=== PATIENT | female | born 1985 | race Caucasian/White ===

== ENCOUNTER 2017-03-08 17:56 | Emergency (ER) | payer MEDICAID ==
[~2017-03-08] VITALS: Ht 167.6 cm; Wt 65.8 kg
[~2017-03-08 17:56] MED LIST: SERT100T PO
[2017-03-08 18:07] VITALS: BP 121/87
[2017-03-08 18:30] LABS: BASOPHILS # (AUTO) 0.5 K/uL (0.00-0.22); EOSINOPHILS # (AUTO) 0.2 K/uL (0-0.4); HEMATOCRIT 36.8 % (36-48); HEMOGLOBIN 11.7 g/dL (12.0-16.0); LYMPHOCYTES # (AUTO) 3.2 K/uL (2.5-16.5); MEAN CORPUSCULAR HEMOGLOBIN 28 pg (27-31); MEAN CORPUSCULAR HGB CONC 32 g/dL (33-37); MEAN CORPUSCULAR VOLUME 88 fL (80-94); PLATELET COUNT (AUTO) 349 K/uL (140-450); RED BLOOD CELL COUNT(AUTO) 4.16 MIL/uL (4.20-5.40); RED CELL DISTRIBUTION WIDTH 14.3 % (11.6-13.7); WHITE BLOOD COUNT (AUTO) 8.9 K/uL (4.8-10.8)
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
[2017-03-08 18:46] LABS: CREATININE 0.8 mg/dL (0.6-1.3)
--- NOTE | 2017-03-08 18:48 | NUR ---
DR BAXTER EVALUATING PT AT BEDSIDE
[2017-03-08 18:52] LABS: ACETAMINOPHEN 9.6 ug/ml (10-30); SALICYLATE 4.8 mg/dL (2.8-20.0); TOTAL BILIRUBIN 0.2 mg/dL (0.0-1.0)
[2017-03-08] MEDS ORDERED: NACL 0.9% 1,000 ML IV ONE (18:55)
--- NOTE | 2017-03-08 19:11 | NUR ---
Pt found lying supine, VSS on coffee sommelier. Pt arousable to physical stimuli. Pt lethargic but arousable. Pt answering questions and cooperative at this time.
--- NOTE | 2017-03-08 19:42 | NUR ---
Patient being evaluated by Dr. Romo at bedside.
--- NOTE | 2017-03-08 19:44 | NUR ---
Pt placed on bed moreira to provide urine specimen.
--- NOTE | 2017-03-08 19:53 | NUR ---
UA collected and sent to lab.
[2017-03-08 20:14] LABS: APPEARANCE,URINE CLOUDY (CLEAR); BILIRUBIN,URINE 1+ (NEGATIVE); BLOOD, URINE 1+ (NEGATIVE); COLOR,URINE YELLOW (YELLOW); LEUKOCYTE ESTERASE ,URINE 2+ (NEGATIVE); NITRITE, URINE POSITIVE (NEGATIVE); UGLUCOSE NEGATIVE (NEGATIVE)
[2017-03-08 20:21] LABS: BARBITURATE, URINE NEG. ng/ml (NEG <=200); BENZODIAZEPINE, URINE NEG. ng/mL (NEG <=200); CANNABINOID, URINE POS. ng/mL (NEG <=50); COCAINE, URINE NEG. ng/mL (NEG <=300); OPIATE, URINE NEG. ng/mL (NEG <=2000); PHENCYCLIDINE SCREEN,URINE NEG. ng/mL (NEG <=25)
[2017-03-08 20:24] LABS: RBC,URINE 3-10 (FEW) /HPF (0-5); WBC,URINE TOO MANY TO COUNT /HPF (0-5)
--- NOTE | 2017-03-08 21:32 | NUR ---
Patient resting comfortably in be, calm and relaxed. Vital signs stable. Respirations even and unlabored. Sitter at bedside.
--- NOTE | 2017-03-08 22:15 | NUR ---
Pt provided with a sandwich and juice. Pt tolerating well.
--- NOTE | 2017-03-08 22:39 | NUR ---
Pt resting comfortably at this time. VSS. All needs addressed.
--- NOTE | 2017-03-08 23:31 | NUR ---
Pt c/o nause and c/o "feeling hot." Dr. Romo made aware. VSS.
[2017-03-08] MEDS ORDERED: LEVOFLOXACIN 500 MG TAB PO ONE (23:35)
--- NOTE | 2017-03-08 23:55 | NUR ---
Report given to Angélica HAN. Dr. Maguire information provided to me for Dr. Romo to call and give report to Dr. Maguire. Call back # for Audra HAN- [phone] at [facility]
--- NOTE | 2017-03-09 00:19 | NUR ---
Dr. Maguire accepted patient. Called Audra back. Pt going to [facility] room 13C. Will call for transportation and call report.
--- NOTE | 2017-03-09 00:44 | NUR ---
Patient to be transferred to [facility]. Is being transferred due to psychiatric services and higher level of care. Receiving facility has accepting physician Dr. Maguire and available space. ER physician has signed transfer form. Patient belongings inventoried and will be sent with patient. Copy of nursing notes, lab reports, EKG, Physicians Orders to be sent with patient. Report called to Zane HAN at receiving facility. [facility] ambulance service has been called for transfer. ETA is 30-45 mins.
--- NOTE | 2017-03-09 01:03 | NUR ---
IV removed, catheter intact and site benign. Applied folded 4x4 gauze and tape to stop bleeding.
--- NOTE | 2017-03-09 01:04 | NUR ---
Report given to [facility]. Pt transferred to [facility]. Security called for pt belongings prior to transfer.
--- NOTE | 2017-03-09 01:17 | NUR ---
Security brought belongings to bedside. Pt transferred out.
[2017-03-09 01:18] VITALS: BP 123/84
--- NOTE | 2017-03-09 01:19 | NUR ---
Attempted to call pt's emergency contact per patient request, no answer and no voicemail available.
== END 2017-03-09 01:18 ==
LOC: MED 17:56
DX: R45.851 Suicidal ideations (principal); N39.0 Urinary tract infection, site not specified; I10 Essential (primary) hypertension
CPT/HCPCS: 36415; 80053; 80305; 81001; 81025; 82948; 85025; 87077; 87086; 87186; 93005; 96360; 99285; C1758; G0480; G0482; J7030

== ENCOUNTER 2018-02-13 15:39 | Emergency (ER) | payer MEDICAID ==
[~2018-02-13] VITALS: Ht 170.2 cm; Wt 86.2 kg
[2018-02-13 15:40] VITALS: BP 129/81
--- NOTE | 2018-02-13 15:52 | NUR ---
PT AMBULATED TO ER BED 10
--- NOTE | 2018-02-13 16:00 | NUR ---
32f bib self with c/o 8/10 bl flank pain, body aches, fevers, and dysuria x 3 days, progressively getting worse. Patient denies any cough or n/v/d. Patient is aox4 to person, place, situation, and time. RR are even and unlabored. Abd soft and non tender. Tender to touch to bl flank area. Patient changed into gown and to pulse, pulse ox, and bp monitoring. Patient is tachycardic. NAD.Will continue to monitor.
[2018-02-13] MEDS ORDERED: NACL 0.9% 1,000 ML IV ONE ×2 (16:25→17:40)
[2018-02-13] MEDS ORDERED: KETOROLAC 30 MG/ML VIAL IVP ONE (16:25)
[2018-02-13] MEDS ORDERED: KETOROLAC 30 MG/ML VIAL ONE (16:49)
[2018-02-13] MEDS ORDERED: ACETAMINOPHEN EXTRA STRENGTH 500 MG TAB ONE (16:49)
[2018-02-13 17:26] LABS: POTASSIUM 4.1 mmol/L (3.5-5.1)
[2018-02-13 17:27] LABS: ANION GAP 13.1 (8-16)
[2018-02-13 17:30] LABS: CREATININE 0.9 mg/dL (0.6-1.3)
[2018-02-13 17:31] LABS: TOTAL BILIRUBIN 0.4 mg/dL (0.0-1.0)
[2018-02-13 17:42] LABS: BASOPHILS % (AUTO) 0.4 % (0.0-2.0); EOSINOPHILS # (AUTO) 0.1 K/uL (0-0.4); EOSINOPHILS % (AUTO) 0.5 % (0.0-4.0); HEMOGLOBIN 12.2 g/dL (12.0-16.0); LYMPHOCYTES # (AUTO) 1.4 K/uL (2.5-16.5); MEAN CORPUSCULAR HEMOGLOBIN 31 pg (27-31); MEAN CORPUSCULAR HGB CONC 34 g/dL (33-37); MEAN CORPUSCULAR VOLUME 90.6 fL (80-94); MONOCYTES # (AUTO) 1.2 K/uL (0.8-1.0); MONOCYTES % (AUTO) 11.7 % (1.7-9.3); NEUTROPHILS # (AUTO) 7.5 K/uL (1.8-7.7); NEUTROPHILS % (AUTO) 73.4 % (42.2-75.2); PLATELET COUNT (AUTO) 273 K/uL (140-450); RED BLOOD CELL COUNT(AUTO) 3.98 MIL/uL (4.20-5.40); RED CELL DISTRIBUTION WIDTH 14.3 % (11.6-13.7); WHITE BLOOD COUNT (AUTO) 10.2 K/uL (4.8-10.8)
[2018-02-13] MEDS ORDERED: MORPHINE SULFATE 2 MG/ML SYR IVP ONE (17:45)
[2018-02-13] MEDS ORDERED: MORPHINE SULFATE 2 MG/ML SYR ONE (17:58)
--- NOTE | 2018-02-13 18:00 | NUR ---
ivf infusing without difficulty. patient provided with food. nad. vss. will continue to monitor.
[2018-02-13] MEDS ORDERED: LEVOFLOXACIN 500 MG/D5W PREMIX 100 ML IV ONE ×2 (18:20→18:29)
[2018-02-13 18:22] LABS: APPEARANCE,URINE HAZY (CLEAR); BILIRUBIN,URINE NEGATIVE (NEGATIVE); BLOOD, URINE 3+ (NEGATIVE); COLOR,URINE YELLOW (YELLOW); LEUKOCYTE ESTERASE ,URINE 3+ (NEGATIVE); NITRITE, URINE POSITIVE (NEGATIVE); UGLUCOSE NEGATIVE (NEGATIVE)
[2018-02-13 18:34] LABS: RBC,URINE 50-80 /HPF (0-5); WBC,URINE 60-80 /HPF (0-5)
[2018-02-13 18:51] LABS: ALBUMIN 2.9 g/dL (3.4-5.0)
--- NOTE | 2018-02-13 19:26 | NUR ---
Pt report given to Octavio HAN. Transfer of care at this time.
--- NOTE | 2018-02-13 19:30 | NUR ---
PATIENT RESTING AT THIS TIME. NO SIGNS OF DISTRESS.
[2018-02-13 19:45] VITALS: BP 128/79
--- NOTE | 2018-02-13 19:45 | NUR ---
Patient discharged with v/s stable. Written and verbal after care instructions given and explained. Patient alert, oriented and verbalized understanding of instructions. Ambulatory with steady gait. All questions addressed prior to discharge. ID band removed. Patient advised to follow up with PMD. Rx of CIPRO 500MG AND MOTRIN 800MG given. Patient educated on indication of medication including possible reaction and side effects. Opportunity to ask questions provided and answered.
== END 2018-02-13 19:45 | disposition home or self-care (01) ==
LOC: MED 15:39
DX: N39.0 Urinary tract infection, site not specified (principal); Z79.899 Other long term (current) drug therapy
CPT/HCPCS: 36415; 80053; 81001; 81025; 83605; 85025; 87040; 87086; 87186; 96365; 96375; 99284; J1885; J1956; J2270; J7030

== ENCOUNTER 2018-07-16 14:15 | Emergency (ER) | payer MEDICAID ==
[~2018-07-16] VITALS: Ht 167.6 cm; Wt 86.2 kg
[2018-07-16 14:21] VITALS: BP 138/70
--- NOTE | 2018-07-16 14:38 | NUR ---
32 Y/O F BIB SELF WITH C/O RIGHT EYE PAIN X 2 DAYS, + REDNESS, + SWELLING, + BLURRY VISION, + DISCHARGE, NO INJURY/ TRAUMA. PT ALSO STATES SHE NEEDS MEDICATION REFILLS FOR " ZOLOFT 100MG QD, WELLBUTERIN 25MG OR 35MG QD." AAOX4, PERRL, WITH EVEN AND STEADY GAIT; PT DENIES ANY FEVER, CP, SOB, OR COUGH AT THIS TIME; PT STATES 8/10 PAIN AT THIS TIME; VSS; PATIENT POSITIONED FOR COMFORT; HOB ELEVATED; BEDRAILS UP X2; BED DOWN. PMH: HTN, HIGH CHOLESTEROL RX: NONE
[2018-07-16] MEDS ORDERED: TETRACAINE HCL/PF 0.5% OPTH 4 ML BTL OP ONE (15:20)
[2018-07-16] MEDS ORDERED: FLUORESCEIN OPTH STRIP 0.6 MG OP ONE (15:20)
[2018-07-16] MEDS ORDERED: ERYTHROMYCIN 0.5% OPTH OINT 1 GM TUBE OP STA (15:38)
[2018-07-16 15:59] VITALS: BP 133/65
--- NOTE | 2018-07-16 15:59 | NUR ---
Patient discharged with v/s stable. Written and verbal after care instructions given and explained. Patient alert, oriented and verbalized understanding of instructions. Ambulatory with steady gait. All questions addressed prior to discharge. ID band removed. Patient advised to follow up with PMD. Rx of AUGMENTIN, NORCO, WELLBUTRIN, ZOLOFT given. Patient educated on indication of medication including possible reaction and side effects. Opportunity to ask questions provided and answered.
== END 2018-07-16 15:59 | disposition home or self-care (01) ==
LOC: MED 14:15
DX: L03.213 Periorbital cellulitis (principal); I10 Essential (primary) hypertension; Z79.899 Other long term (current) drug therapy
CPT/HCPCS: 99283

== ENCOUNTER 2018-09-18 19:22 | Emergency (ER) | payer MEDICAID ==
[~2018-09-18] VITALS: Ht 167.6 cm; Wt 86.2 kg
[2018-09-18 19:40] VITALS: BP 114/60
--- NOTE | 2018-09-18 19:43 | NUR ---
TO LOBBY A/W MATTHEW, LYUBOV, MALS
--- NOTE | 2018-09-18 20:17 | NUR ---
PT REPORTS HAVING A TAMPON STUCK IN VAGINA X 4 DAYS, STATES SHE FORGOT ABOUT IT AND TRYED TO REMOVE IT YESTERDAY BUT COULDN'T. C/O ABDOMINAL PAIN 12/10. DENIES N/V/D/F.SKIN IS PINK/WARM/DRY; AAOX4 WITH EVEN AND STEADY GAIT;VSS; PATIENT POSITIONED FOR COMFORT; HOB ELEVATED; BEDRAILS UP X1; BED DOWN. ER MD MADE AWARE OF PT STATUS.
--- NOTE | 2018-09-18 20:17 | NUR ---
PT AMBULATED TO ER BED 03
--- NOTE | 2018-09-18 21:25 | NUR ---
PELVIC SET UP AT BEDSIDE. ER MD MADE AWARE
--- NOTE | 2018-09-18 21:50 | NUR ---
er md at pt bedside, removed a tampon. pt tolerated well. pt states she feels better and the pain is minimal 3/10.
[2018-09-18 22:12] VITALS: BP 114/60
== END 2018-09-18 22:12 | disposition home or self-care (01) ==
LOC: MED 19:22
DX: T19.2XXA Foreign body in vulva and vagina, initial encounter (principal); R10.2 Pelvic and perineal pain; F17.200 Nicotine dependence, unspecified, uncomplicated; Z79.899 Other long term (current) drug therapy; X58.XXXA Exposure to other specified factors, initial encounter; Y93.89 Activity, other specified; Y92.89 Other specified places as the place of occurrence of the external cause; Y99.8 Other external cause status
CPT/HCPCS: 99284

== ENCOUNTER 2018-10-27 11:59 | Emergency (ER) | payer MEDICAID ==
[~2018-10-27] VITALS: Ht 167.6 cm; Wt 81.6 kg
--- NOTE | 2018-10-27 12:13 | NUR ---
PT C/O OF RIGHT RIB PAIN FOR 3 DAYS. DENIES N/V/D; SKIN IS PINK/WARM/DRY; AAOX4 WITH EVEN AND STEADY GAIT; LUNGS CLEAR BL; HR EVEN AND REGULAR; PT DENIES ANY FEVER, CP, SOB, OR COUGH AT THIS TIME; PATIENT STATES SHARP RIGHT RIB PAIN OF 8/10 AT THIS TIME; VSS; PATIENT POSITIONED FOR COMFORT; HOB ELEVATED; BEDRAILS UP X2; BED DOWN. ER MD MADE AWARE OF PT STATUS.
--- NOTE | 2018-10-27 14:19 | NUR ---
DR GUAN AT BEDSIDE FOR PT EVALUATION
[2018-10-27] MEDS ORDERED: KETOROLAC 60 MG/2 ML VIAL IM ONE (14:40)
[2018-10-27] MEDS ORDERED: cefTRIAXone 1,000 MG in LIDOCAINE MPF 1% - 5 mL VIAL 2.1 ML IM ONE (14:40)
[2018-10-27 15:00] VITALS: BP 118/59
--- NOTE | 2018-10-27 15:01 | NUR ---
Patient discharged with v/s stable. Written and verbal after care instructions given and explained. Patient alert, oriented and verbalized understanding of instructions. Ambulatory with steady gait. All questions addressed prior to discharge. ID band removed. Patient advised to follow up with PMD. Rx of Naprosyn and Cipro given. Patient educated on indication of medication including possible reaction and side effects. Opportunity to ask questions provided and answered.
== END 2018-10-27 15:01 | disposition home or self-care (01) ==
LOC: MED 11:59
DX: N39.0 Urinary tract infection, site not specified (principal); Z79.899 Other long term (current) drug therapy
CPT/HCPCS: 81002; 81025; 96372; 99283; J0696; J1885; J2001

== ENCOUNTER 2019-04-15 00:49 | Emergency (ER) | payer MEDICAID ==
[~2019-04-15] VITALS: Ht 167.6 cm; Wt 81.6 kg
[2019-04-15 00:55] VITALS: BP 122/80
--- NOTE | 2019-04-15 00:55 | NUR ---
TO BED #07 ambulatory
--- NOTE | 2019-04-15 01:00 | NUR ---
PT CAME INTO ER WITH C/O RIGHT SIDE MOUTH PAIN/JAW X 3 DAYS. PT STATED THAT 2 DAYS AGO, HER RIGHT EAR STARTED TO HAVE PAIN. PAIN LEVEL IS 10/10 AT THIS TIME. PT IS ALERT AND RESPONDS WELL TO QUESTIONS AND ANSWERS APPROPRIATELY. PT STATED SHE HAS A CHIPPED TOOTH AND GOT SOME FOOD IN IT AND TRIED TO GET IT OUT WITH A TOOTH PICK. ERMD MADE AWARE OF STATUS, SAFETY MEASURES IN PLACE. WILL CONTINUE TO MONITOR. Addendum: 04/15/19 at 0118 by [email or web address] PT CAME INTO ER WITH C/O RIGHT SIDE MOUTH PAIN/JAW X 3 DAYS. PT STATED THAT 2 DAYS AGO, HER RIGHT EAR STARTED TO HAVE PAIN. PAIN LEVEL IS 10/10 AT THIS TIME. PT IS ALERT AND RESPONDS WELL TO QUESTIONS AND ANSWERS APPROPRIATELY. PT STATED SHE HAS A CHIPPED TOOTH AND GOT SOME FOOD IN IT AND TRIED TO GET IT OUT WITH A TOOTH PICK. PT HAS SOME MINIMAL SWELLING AND REDNESS TO SIGHT. PT IS ABLE TO OPEN AND CLOSE MOUTH. ERMD MADE AWARE OF STATUS, SAFETY MEASURES IN PLACE. WILL CONTINUE TO MONITOR.
--- NOTE | 2019-04-15 01:32 | NUR ---
Dr. Romo examining patient.
[2019-04-15] MEDS ORDERED: IBUPROFEN 800 MG TAB PO ONE (01:35)
[2019-04-15] MEDS ORDERED: AMOXICILLIN 500 MG CAP PO ONE (01:35)
[2019-04-15 01:55] VITALS: BP 119/79
--- NOTE | 2019-04-15 01:55 | NUR ---
Patient discharged with v/s stable. Written and verbal after care instructions given and explained. Patient alert, oriented and verbalized understanding of instructions. Ambulatory with steady gait. All questions addressed prior to discharge. ID band removed. Patient advised to follow up with PMD. Rx of AMOXICILLIN; MOTRIN given. Patient educated on indication of medication including possible reaction and side effects. Opportunity to ask questions provided and answered.
== END 2019-04-15 01:55 | disposition home or self-care (01) ==
LOC: MED 00:49
DX: K04.7 Periapical abscess without sinus (principal); I10 Essential (primary) hypertension; Z79.899 Other long term (current) drug therapy
CPT/HCPCS: 99283

== ENCOUNTER 2019-04-26 18:24 | Inpatient (IN) | payer MEDICAID ==
[~2019-04-26] VITALS: Ht 167.6 cm; Wt 78.9 kg
--- NOTE | 2019-04-26 18:24 | NUR ---
Pt biba and placed in bed 5. Per EMS pt was placed on 5150 hold for an overdose per family. Patient is refusing to remove her clothing or taken any personal belongings off. Patient denies desire to harm self or others. Potentially harmful items removed from room. Pt is agitated and appears angry. Pt advised that when [place] [employer] brings 5150 pt will need to remove belongings so they can be given to security. Pt replied "That's fine when they bring that form. I already know the routine."
--- NOTE | 2019-04-26 18:25 | NUR ---
PT BIBA TO BED 05.
[2019-04-26 18:26] VITALS: BP 136/85
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
[2019-04-26 18:58] LABS: BASOPHILS % (AUTO) 0.2 % (0.0-2.0); EOSINOPHILS # (AUTO) 0.3 K/uL (0-0.4); EOSINOPHILS % (AUTO) 3.4 % (0.0-4.0); HEMOGLOBIN 13.2 g/dL (12.0-16.0); LYMPHOCYTES # (AUTO) 1.7 K/uL (2.5-16.5); LYMPHOCYTES % (AUTO) 21.9 % (20.5-51.1); MEAN CORPUSCULAR HEMOGLOBIN 31 pg (27-31); MEAN CORPUSCULAR HGB CONC 33 g/dL (33-37); MEAN CORPUSCULAR VOLUME 92.6 fL (80-94); MONOCYTES # (AUTO) 0.7 K/uL (0.8-1.0); MONOCYTES % (AUTO) 8.4 % (1.7-9.3); NEUTROPHILS # (AUTO) 5.2 K/uL (1.8-7.7); NEUTROPHILS % (AUTO) 66.1 % (42.2-75.2); PLATELET COUNT (AUTO) 327 K/uL (140-450); RED BLOOD CELL COUNT(AUTO) 4.32 MIL/uL (4.20-5.40); RED CELL DISTRIBUTION WIDTH 14.5 % (11.6-13.7); WHITE BLOOD COUNT (AUTO) 7.9 K/uL (4.8-10.8)
--- NOTE | 2019-04-26 19:00 | NUR ---
PT RESTING, 1 TO 1 SITTER AT BEDSIDE. WILL CONTINUE TO MONITOR.
--- NOTE | 2019-04-26 19:05 | NUR ---
PT RECEIVED PT RIGHTS PER REQUEST FROM SECURITY
[2019-04-26 19:06] LABS: BARBITURATE, URINE NEG. ng/ml (NEG <=200); BENZODIAZEPINE, URINE NEG. ng/mL (NEG <=200); CANNABINOID, URINE POS. ng/mL (NEG <=50); COCAINE, URINE NEG. ng/mL (NEG <=300); OPIATE, URINE NEG. ng/mL (NEG <=2000); PHENCYCLIDINE SCREEN,URINE NEG. ng/mL (NEG <=25)
--- NOTE | 2019-04-26 19:06 | NUR ---
Pt report given to EMELY Alvarez. Transfer of care at this time.
[2019-04-26 19:11] LABS: ANION GAP 14.8 (8-16); CREATININE 0.7 mg/dL (0.6-1.3); POTASSIUM 3.8 mmol/L (3.5-5.1)
--- NOTE | 2019-04-26 19:14 | NUR ---
PT STATES NO SUICIDAL IDEATION AT THIS TIME. PT RESTING IN BED CALM AND PLEASANT. 1-1 SITTER AT BEDSIDE, ALL PERSONAL ITEMS REMOVED FROM ROOM. VSS. WILL CONTINUE TO MONITOR.
[2019-04-26 19:18] LABS: ALBUMIN 3.4 g/dL (3.4-5.0); TOTAL BILIRUBIN 0.3 mg/dL (0.0-1.0)
[2019-04-26 19:20] LABS: SALICYLATE < 2.8 mg/dL (2.8-20.0)
--- NOTE | 2019-04-26 19:28 | NUR ---
TELEPSYCH REQUEST INITIATED
[2019-04-26 19:44] LABS: CREATINE KINASE MB 0.4 ng/mL (0-3.6)
--- NOTE | 2019-04-26 19:58 | NUR ---
PT C/O PAIN AND REQUESTING LIQUID TYLENOL. DR GUAN MADE AWARE.
[2019-04-26] MEDS ORDERED: ACETAMINOPHEN 650 MG/20.3 ML UDC PO ONE (20:00)
--- NOTE | 2019-04-26 20:10 | NUR ---
TELEPSYCH CAFE OPERATOR WITH PT AT THIS TIME.
--- NOTE | 2019-04-26 20:15 | NUR ---
PT REFUSED TO SPEAK TO TELEPSYCH DOCTOR. DR GUAN MADE AWARE. DR GUAN SPEAKING TO PSYCH MD AT THIS TIME.
--- NOTE | 2019-04-26 20:53 | NUR ---
PT RESTING IN BED WITH EYES CLOSED, VISIBLE RISE AND FALL OF THE CHEST. PT CONTINUES TO DENY SI. 1-1 SITTER WITH PT REMAINS. WILL CONTINUE TO MONITOR.
--- NOTE | 2019-04-26 21:02 | NUR ---
PT C/O 01/10 CRAMPS TO ABD AT THIS TIME, REQUESTS MEDICATIONS. DR GUAN MADE AWARE OF PT REQUEST.
[2019-04-26] MEDS ORDERED: ONDANSETRON 4 MG/2 ML VIAL IM/IVP PRN (22:15)
[2019-04-26] MEDS ORDERED: ACETAMINOPHEN 325 MG TAB PO PRN (22:15)
[2019-04-26] MEDS ORDERED: DOCUSATE SODIUM 100 MG GELCAP PO PRN (22:15)
--- NOTE | 2019-04-26 22:25 | NUR ---
PT LAYING WITH EYES CLOSED, VISIBLE RISE AND FALL OF CHEST. NO C/O PAIN AT THIS TIME VSS. WILL CONTINUE TO MONITOR. 1-1 SITTER REMAINS WITH PT. DENIES SI
[2019-04-26 22:41] LABS: BILIRUBIN,URINE 1+ (NEGATIVE); BLOOD, URINE 3+ (NEGATIVE); LEUKOCYTE ESTERASE ,URINE TRACE (NEGATIVE); NITRITE, URINE POSITIVE (NEGATIVE); PH,URINE 7.5 (5.0-9.0); UGLUCOSE NEGATIVE (NEGATIVE)
[2019-04-26 22:58] LABS: MAGNESIUM 1.7 mg/dL (1.8-2.4); THYROID STIMULATING HORMONE 0.6 uIU/mL (0.34-3.74)
[2019-04-26 23:00] VITALS: BP 117/73
--- NOTE | 2019-04-26 23:00 | NUR ---
RECEIVED PT FROM ER VIA [facility] HOLD FOR AMPHETAMINES INTOXICATION, SI, AND TOXIC ENCEPHALOPATY PT VERBALIZED NOT TO HAVE SUICIDAL IDEATION, PT IS AAOX4 HL O;N LEFT AC # 20 PATENT, SKIN IS INTACT, MRSA SWAB NARES PROTOCOL AND SENT TO LAB PT IS O;RIENTED TO THE FLOOR , SITTER AT BED SIDE ALL TIME
--- NOTE | 2019-04-26 23:00 | NUR ---
PT STATES SHE WANTED MOTHER CALLED TO LET KNOW SHE WAS BEING ADMITTED. PT GAVE PERMISSION TO GIVE INFORMATION TO MOTHER. CALLED, NO ANSWER. LEFT MESSAGE STATING PT WAS ADMITTED.
--- NOTE | 2019-04-26 23:00 | NUR ---
Patient will be admitted to care of DR PELAEZ. Admited to [facility]. Will go to room 110A. Belongings list completed. Report to EMELY WHEATLEY.
[2019-04-26] MEDS: NACL 0.9% 1,000 ML IV SCH (23:05)
[2019-04-26] MEDS ORDERED: LACTULOSE 20 GM/30 ML UDC PO SCH (23:30)
[2019-04-26] MEDS ORDERED: MAGNESIUM OXIDE 400 MG TAB PO SCH (23:30)
[2019-04-26 23:31] LABS: PROTHROMBIN TIME 9.3 secs (10.8-13.4)
[2019-04-26 23:35] LABS: APPEARANCE,URINE HAZY (CLEAR)
[2019-04-26 23:36] LABS: COLOR,URINE RED (YELLOW)
--- NOTE | 2019-04-26 23:36 | NUR ---
No vacancy at this time at the following facilities, [facility] Charge nurse Vinay HAN made aware ,will continue to make calls for placement.
[2019-04-26 23:37] LABS: RBC,URINE TOO NUMEROUS TO COUN /HPF (0-5); WBC,URINE 0-5 /HPF (0-5)
[2019-04-27] VITALS: BP 118/75
[2019-04-27] MEDS ORDERED: IBUPROFEN 600 MG TAB PO PRN (00:45)
--- NOTE | 2019-04-27 02:00 | NUR ---
AFTER EATING A SANDWICH PT FOR PAIN MEDIC IV DR BUI WAS NOTIFY PT HAS ONLY TYLENOL AND IBUPROFEN AND SHE REFUSED THOSE MEDIC
--- NOTE | 2019-04-27 03:37 | NUR ---
PT NISHA BECAUSE SHE WANT THE LAB REPORT COPIES AND ALSO SLEEPING MEDIC IV AND DR BUI WAS NOTIFY AND ORDERS TO FOLLOW Addendum: 04/27/19 at 0553 by Priya Quevedo RN PT RADHA BECAUSE SHE WANTS LABS REPORT FOR HER RECORDS
--- NOTE | 2019-04-27 05:53 | NUR ---
PT 5153 SITTER AT BED SIDE REFUSED NURSES BECAUSES NURSES DONT GIVE SLEEPING MEDIC IV, DR BUI AWARE
--- NOTE | 2019-04-27 06:35 | NUR ---
PT IS PENDING TO BE SEEN BY DR Sousa PSYCHIATRY CONSULT
--- NOTE | 2019-04-27 06:37 | NUR ---
PT WILL BE ENDORSED TO DAY SHIFT NURSE FOR CONTINUE OF CARE PT 2277 HOLD SITTER AT BED SDIE ALL TIME
[2019-04-27 07:06] LABS: BASOPHILS % (AUTO) 0.3 % (0.0-2.0); EOSINOPHILS # (AUTO) 0.3 K/uL (0-0.4); EOSINOPHILS % (AUTO) 5.6 % (0.0-4.0); HEMATOCRIT 36.7 % (36-48); HEMOGLOBIN 12.1 g/dL (12.0-16.0); LYMPHOCYTES # (AUTO) 1.9 K/uL (2.5-16.5); LYMPHOCYTES % (AUTO) 39.5 % (20.5-51.1); MEAN CORPUSCULAR HEMOGLOBIN 31 pg (27-31); MEAN CORPUSCULAR HGB CONC 33 g/dL (33-37); MEAN CORPUSCULAR VOLUME 93.6 fL (80-94); MONOCYTES # (AUTO) 0.6 K/uL (0.8-1.0); MONOCYTES % (AUTO) 12.1 % (1.7-9.3); NEUTROPHILS # (AUTO) 2.1 K/uL (1.8-7.7); NEUTROPHILS % (AUTO) 42.5 % (42.2-75.2); PLATELET COUNT (AUTO) 279 K/uL (140-450); RED BLOOD CELL COUNT(AUTO) 3.92 MIL/uL (4.20-5.40); RED CELL DISTRIBUTION WIDTH 14.6 % (11.6-13.7); WHITE BLOOD COUNT (AUTO) 4.9 K/uL (4.8-10.8)
--- NOTE | 2019-04-27 07:46 | NUR ---
RECEIVED PT FROM LIFE ASSURANCE REPRESENTATIVE FOR CONTINUITY OF CARE. PT IS AAOX4, ACTING HOSTILE AND IS UPSET DUE TO NOT GETTING STRONGER PAIN MEDS SHE REQUESTED. PT IS AMBULATORY AND IS HERE ON 5150. SITTER 1:1 AT BEDSIDE. PT SKIN INTACT. EXPLAINED POC TO PT AND PT VERBALIZED UNDERSTANDING. ALL NEEDS CURRENTLY MET. WILL CONTINUE TO ROUND FREQUENTLY ON PT. BED IN LOW POSITION, CALL LIGHT WITHIN REACH.
--- NOTE | 2019-04-27 07:49 | NUR ---
RECIEVED REPORT FROM NOC SHIFT, THERE ARE CURRENTLY NO UPDATES AT THIS TIME CC WILL CONT TO F/U AND ASSIST IN PLACEMENT
[2019-04-27 08:00] VITALS: BP 123/82
[2019-04-27] MEDS ORDERED: KETOROLAC 30 MG/ML VIAL IVP PRN (08:15)
[2019-04-27] MEDS ORDERED: ACETAMINOPHEN 650 MG/20.3 ML UDC PO PRN (08:15)
--- NOTE | 2019-04-27 08:23 | NUR ---
PATIENT HAS BEEN SCREENED AND CATEGORIZED LOW NUTRITION RISK. PATIENT WILL BE SEEN WITHIN 7 DAYS OF ADMISSION. 05/03/[address]
[2019-04-27 09:06] LABS: ANION GAP 10.8 (8-16); CARBON DIOXIDE 28.7 mmol/L (21-32); POTASSIUM 3.5 mmol/L (3.5-5.1)
[2019-04-27 09:07] LABS: CREATININE 0.7 mg/dL (0.6-1.3)
[2019-04-27] MEDS: SERTRALINE 50 MG TAB PO SCH (09:18)
[2019-04-27] MEDS: LACTOBACILLUS RHAMNOSUS GG 1 EACH CAP PO SCH (09:18)
--- NOTE | 2019-04-27 09:26 | NUR ---
ADMINISTERED MORNING MEDS TO PT. PT TOLERATED THEM WELL. ALL NEEDS MET. WILL CONTINUE TO ROUND FREQUENTLY ON PT. BED IN LOW POSITION, CALL LIGHT WITHIN REACH. SITTER AT BEDSIDE 1:1.
[2019-04-27 09:36] LABS: MAGNESIUM 1.9 mg/dL (1.8-2.4); PHOSPHORUS 3.6 mg/dL (2.5-4.9)
[2019-04-27] MEDS ORDERED: LACTULOSE 20 GM/30 ML UDC PO SCH (11:00)
--- NOTE | 2019-04-27 11:46 | NUR ---
DC PLANNIN33 YEAR OLD FEMALE PATIENT FROM HOME, WHO CAME IN 2/ TO POSSIBLE DRUG OVERDOSE. PAST MEDICAL HISTORY INCLUDE MAJOR DEPRESSIVE DISORDER, SUBSTANCE ABUSE AND DRUG OVERDOSE. INITIAL DIAGNOSIS OF TOXIC ENCEPHALOPATHY. PSYCHE CONSULT WITH DR. WISE RE: 5150 HOLD. UDS IS POSITIVE FOR AMPHETAMINES AND CANNABINOIDS. ON ROCEPHIN. DC PLANNING PENDING PSYCH'S RECOMMENDATIONS.
[2019-04-27] MEDS: KETOROLAC 15 MG/ML VIAL IVP PRN ×2 (11:48→19:31)
--- NOTE | 2019-04-27 11:48 | NUR ---
PT RESTING IN BED. AL NEEDS MET. WILL CONTINUE TO ROUND FREQUENTLY ON PT. BED IN LOW POSITION, CALL LIGHT WITHIN REACH.
--- NOTE | 2019-04-27 13:31 | NUR ---
PT SLEEPING. ALL NEEDS MET. SITTER AT BEDSIDE 1:1. BED IN LOW POSITION, WILL ROUND FREQUENTLY ON PT.
--- NOTE | 2019-04-27 14:45 | NUR ---
there are still no new updates at this time at the following facilities: [facility] will cont to f/u and monitor to assist in placement
--- NOTE | 2019-04-27 15:56 | NUR ---
PT SLEEPING. WILL CONTINUE TO ROUND FREQUENTLY ON PT. BED IN LOW POSITION, SITTER 1:1 BEDSIDE.
[2019-04-27 16:00] VITALS: BP 117/69
--- NOTE | 2019-04-27 16:06 | NUR ---
Timekeeper Supervisor Note: Basic Screen: Yes High Risk DC Screen Exline: LEE ANN Kaba Relationship: MOTHER Pre-Admission Living Arrangements: Lives Alone Current Home Health Name/Tel: N/A Current DME/02 Name/Tel: N/A Current Hospice Name/Tel: N/A Current Dialysis Name/Tel: N/A Healthcare Decision Maker: Patient Advance Directive No - REFUSED Physician Orders for Life Sustaining Treatment Form No Patient/Family Have Educational Needs No Information Taught: Advance Directive Community Resources Person Taught: Patient Teaching Tools: Verbal Factors Affecting Learning: None Participation Level: Refused Evaluation: Verbalizes Understanding Needs Additional Education: No Discipline: Case Mgt/Social Svcs Tentative Discharge Plan/Destination: No Needs Identified Will require assistance post discharge: No Referred to Warehouse Material Handler: No Tentative Discharge Plan Summary: Patient is a 33-year-old female admitted for tox encephalopathy. Patient has a PMHX of drug overdose. Patient was admitted from home. SW verified demographics with patient. Patient stated that her father called the police on her, stating that she had taken a number of pills to attempt suicide. Patient reported that she did not take pills, but at that point, she was combative and aggressive with her father because she was experiencing depression. Patient stated that she has a mental health history of major depressive disorder, substance abuse, ADHD, and insomnia. Patient stated that she had tested positive for methamphetamines due to her ADHD medication. Patient stated that she is not medication compliant with her mental health medication, but she will follow up with her psychiatrist and therapist at [facility]. Patient stated that she has a history of suicide attempts but does not feel SI/HI currently. Patient refused resources and is pending a psych consult. SW will follow up as needed. Signature: TIM Ramirez Date: Apr 27, 2019 Time: 16:05
--- NOTE | 2019-04-27 17:45 | NUR ---
PT SLEEPING. ALL NEEDS MET. WILL CONTINUE TO ROUND FREQUENTLY ON PT.
--- NOTE | 2019-04-27 19:30 | NUR ---
ENDORSED PT TO AGENCY SALES REPRESENTATIVE FOR CONTINUITY OF CARE. PT IN STABLE CONDITION AT THIS TIME.
--- NOTE | 2019-04-27 19:31 | NUR ---
Received endorsement from AM shift RN; patient A/Ox4, able to make needs known, Welsh speaking, ambulatory. Patient resting; introduced self, updated board. Patient on 5150 hold, 1:[address] No SOB or distress noted, on room air. IV site on left antecubital, 20 gauge, running NS at 30mL/hr. Bed in the lowest position, call light within reach. Initial assessment done. Will continue to monitor.
[2019-04-27] MEDS: QUEtiapine FUMARATE 25 MG TAB PO SCH (20:30)
[2019-04-27] MEDS: traZODone 50 MG TAB PO SCH (20:32)
--- NOTE | 2019-04-27 21:15 | NUR ---
Due meds given, tolerated well.
[2019-04-27] MEDS: NACL 0.9% 1,000 ML IV SCH (21:22)
--- NOTE | 2019-04-27 21:58 | NUR ---
Still no beds at any of the contracted facilities: [facility] [place] [place]
--- NOTE | 2019-04-27 23:25 | NUR ---
Vitals taken; patient asleep, visible chest rise and fall noted.
[2019-04-28] VITALS: BP 105/74
--- NOTE | 2019-04-28 01:02 | NUR ---
Rounds done; patient asleep, eyes closed, visible chest rise and fall noted.
--- NOTE | 2019-04-28 03:20 | NUR ---
Checks made; no SOB or distress noted. Patient resting comfortably, visible chest rise and fall noted.
--- NOTE | 2019-04-28 05:05 | NUR ---
Rounds done; no SOB or distress noted.
--- NOTE | 2019-04-28 06:02 | NUR ---
Vitals stable, due meds given. Will endorse to AM shift RN for continuity of care.
[2019-04-28 07:17] LABS: BASOPHILS % (AUTO) 0.3 % (0.0-2.0); EOSINOPHILS # (AUTO) 0.3 K/uL (0-0.4); EOSINOPHILS % (AUTO) 5.4 % (0.0-4.0); HEMATOCRIT 31.9 % (36-48); HEMOGLOBIN 10.6 g/dL (12.0-16.0); LYMPHOCYTES # (AUTO) 2.3 K/uL (2.5-16.5); LYMPHOCYTES % (AUTO) 45.3 % (20.5-51.1); MEAN CORPUSCULAR HEMOGLOBIN 31 pg (27-31); MEAN CORPUSCULAR HGB CONC 33 g/dL (33-37); MEAN CORPUSCULAR VOLUME 93.4 fL (80-94); MONOCYTES # (AUTO) 0.7 K/uL (0.8-1.0); MONOCYTES % (AUTO) 12.8 % (1.7-9.3); NEUTROPHILS # (AUTO) 1.9 K/uL (1.8-7.7); NEUTROPHILS % (AUTO) 36.2 % (42.2-75.2); PLATELET COUNT (AUTO) 232 K/uL (140-450); RED BLOOD CELL COUNT(AUTO) 3.42 MIL/uL (4.20-5.40); RED CELL DISTRIBUTION WIDTH 14.2 % (11.6-13.7); WHITE BLOOD COUNT (AUTO) 5.2 K/uL (4.8-10.8)
--- NOTE | 2019-04-28 07:26 | NUR ---
RECEIVED REPORT FROM TRIAL COURT JUDGE NURSE FOR CONTINUATION OF CARE, IV IS INTACT. SHE IS RESTING IN BED, NO SIGNS OF DISTRESS NOTED. REMAINS ON 5150 HOLD. WILL CONTINUE TO MONITOR.
[2019-04-28 08:00] VITALS: BP 103/60
--- NOTE | 2019-04-28 08:17 | NUR ---
RECIEVED REPORT FROM NOC SHIFT THERE ARE STILL NO AVAILABILITY AT THE FOLLOWING FACILITIES: [facility] WILL CONT TO F/U AND ASSIST IN PLACEMENT
[2019-04-28 08:31] LABS: CREATININE 0.7 mg/dL (0.6-1.3)
[2019-04-28] MEDS ORDERED: cefTRIAXone 1,000 MG VIAL ONE (08:31)
[2019-04-28] MEDS: SERTRALINE 50 MG TAB PO SCH (08:36)
[2019-04-28] MEDS: LACTOBACILLUS RHAMNOSUS GG 1 EACH CAP PO SCH (08:36)
--- NOTE | 2019-04-28 10:00 | NUR ---
PATIENT TOLERATED MEDICATION ADMINISTRATION WELL, IV LEAKAGE NOTED, IV WAS REMOVED AND REPLACED. CURRENT IV IS INTACT AND RUNNING NS. PATIENT REMAINS IRRITABLE. WILL CONTINUE TO MONITOR.
--- NOTE | 2019-04-28 11:45 | NUR ---
DC PLANNING 33 YRS OLD FEMALE WAS ADMITTED FROM HOME WITH A DX OF SUICIDAL IDEATION 5150 HOLD . PT HAS A HX OF MAJOR DEPRESSIVE DISORDER ,SUBSTANCE ABUSE . EKG DONE SINUS TACHY UDS + FOR METHAMPHETAMINES . PSYCH CONSULTED. PLACE PT 1:1 SITTER AND WAITING TO BE SEEN BY PSYCH DR Bryanna OLVERA TO FOLLOW
--- NOTE | 2019-04-28 12:30 | NUR ---
PATIENT IS RESTING IN BED, EXPLORED REASONS FOR HOSPITALIZATION, REVIEWED CURRENT PLAN OF CARE. WILL CONTINUE TO MONITOR.
--- NOTE | 2019-04-28 15:00 | NUR ---
PATIENT OBSERVED RESTING IN BED, CHEST RISE AND FALL VISIBLY NOTED. SITTER IN PROXIMITY DUE TO 5150 STATUS. PATIENT DOES NOT ENDORSE SUICIDAL IDEATION AT THIS TIME. WILL CONTINUE TO MONITOR.
--- NOTE | 2019-04-28 15:11 | NUR ---
[facility], RE FAXED PACKET TO [facility], THEY STATED THEY ARE PENDING DISCHARGES, PKT RE FAXED
[2019-04-28 16:00] VITALS: BP 112/68
--- NOTE | 2019-04-28 17:03 | NUR ---
MARCIE CONTINUES TO REST IN BED, NO SIGNS OF DISTRESS NOTED, DINNER WAS CONSUMED. OBSERVED CHEST RISE AND FALL. WILL CONTINUE TO MONITOR. PENDING PLACEMENT FOR DISPO.
--- NOTE | 2019-04-28 19:27 | NUR ---
ENDORSED PT TO PM RN PT APPEARS STABLE AND IN NO APPARENT DISTRESS. ALL SAFETY MEASURES ARE IN PLACE. PREVIOUSLY PROVIDED PT WITH COPY OF SMOKING POLICY PT SPOKE WITH DR. WYNNE ABOUT THE POLICY STATING THAT SHE WANTED TO SPOKE HE STATED HE DOES NOT FEEL OK WITH ALLOWING HER TO SMOKE WHILE ON A 5150. PT COMPLAINED AND WANTED TO FILED COMPLAINT INFORMED SID SAMCOATER HAND.
--- NOTE | 2019-04-28 19:28 | NUR ---
RECD. RESTING IN BED, AWAKE, A/OX4. RESPIRATION EVEN AND UNLABORED. IV OF NS AT 30 ML/HR INFUSING, RIGHT HAND G22. WHEN ASKED IF SHE HAS THOUGHTS OF HURTING SELF, SAID NO. PLEASANT AND SEEMS TO BE FRIENDLY. STATED SHE FILED A GRIEVANCE COMPLAINT REGARDING HER NOT ALLOWED TO SMOKE. PLAN OF CARE FOR THE SHIFT DISCUSSED. VERBALIZED UNDERSTANDING. DENIES PAIN 0/10.
--- NOTE | 2019-04-28 20:00 | NUR ---
IN BED, READING A BOOK. NO APPEARANCE OF ANXIETY NOTED.
--- NOTE | 2019-04-28 20:15 | NUR ---
Patient's Plan of Care was discussed and reviewed with SCOURING MACHINE OPERATOR: CHRISTIANE LAMBERT.
--- NOTE | 2019-04-28 20:15 | NUR ---
AMBULATED TO TO VOID, BACK TO BED AFTER VOIDING.
[2019-04-28] MEDS: traZODone 50 MG TAB PO SCH (20:46)
[2019-04-28] MEDS: QUEtiapine FUMARATE 25 MG TAB PO SCH (20:47)
--- NOTE | 2019-04-28 20:50 | NUR ---
DUE PO MEDICATIONS GIVEN WITH APPLE SAUCE REQUESTED, STATED "I DON'T LIKE TO SEE PILLS. I DRINK A LOT OF THEM."
--- NOTE | 2019-04-28 21:15 | NUR ---
SNACK OF TEA AND CRACKERS GIVEN REQUESTED.
[2019-04-28] MEDS: NACL 0.9% 1,000 ML IV SCH (22:22)
--- NOTE | 2019-04-28 22:30 | NUR ---
SLEEPING COMFORTABLY IN BED.
[2019-04-29] VITALS: BP 129/78
--- NOTE | 2019-04-29 | NUR ---
SLEEPING SOUNDLY IN BED. NO DISTRESS NOTED.
--- NOTE | 2019-04-29 01:15 | NUR ---
WOKE UP, AMBULATED TO BR. BACK TO BED AFTER VOIDING AND WENT BACK TO SLEEP.
--- NOTE | 2019-04-29 03:30 | NUR ---
STILL SLEEPING COMFORTABLY IN BED.
--- NOTE | 2019-04-29 04:15 | NUR ---
WOKE UP WENT TO BR TO VOID. BACK TO BED AFTER VOIDING AND SLEPT.
--- NOTE | 2019-04-29 06:13 | NUR ---
SLEEPING COMFORTABLY IN BED. NEW SITTER MONITORING PATIENT NEAR DOOR.
--- NOTE | 2019-04-29 06:16 | NUR ---
Notified CHRISTIANE HAN , there were no vacancy at any of the following facilities [facility] will endorsed to AM shift to continue to look for placement.
--- NOTE | 2019-04-29 06:48 | NUR ---
CONDITION REMAIN STABLE. SAFETY MAINTAINED DURING THE SHIFT. WILL ENDORSE TO AM SHIFT NURSE FOR CONTINUITY OF CARE.
--- NOTE | 2019-04-29 07:05 | NUR ---
ENDORSED TO AM SHIFT NURSE FOR CONTINUITY OF CARE.
[2019-04-29 07:09] LABS: BASOPHILS % (AUTO) 0.6 % (0.0-2.0); EOSINOPHILS # (AUTO) 0.3 K/uL (0-0.4); EOSINOPHILS % (AUTO) 6.2 % (0.0-4.0); HEMATOCRIT 30.1 % (36-48); HEMOGLOBIN 10.1 g/dL (12.0-16.0); LYMPHOCYTES # (AUTO) 2.6 K/uL (2.5-16.5); LYMPHOCYTES % (AUTO) 51.3 % (20.5-51.1); MEAN CORPUSCULAR HEMOGLOBIN 31 pg (27-31); MEAN CORPUSCULAR HGB CONC 33 g/dL (33-37); MEAN CORPUSCULAR VOLUME 93.6 fL (80-94); MONOCYTES # (AUTO) 0.6 K/uL (0.8-1.0); MONOCYTES % (AUTO) 12.5 % (1.7-9.3); NEUTROPHILS # (AUTO) 1.5 K/uL (1.8-7.7); NEUTROPHILS % (AUTO) 29.4 % (42.2-75.2); PLATELET COUNT (AUTO) 240 K/uL (140-450); RED BLOOD CELL COUNT(AUTO) 3.22 MIL/uL (4.20-5.40); RED CELL DISTRIBUTION WIDTH 14.2 % (11.6-13.7); WHITE BLOOD COUNT (AUTO) 5.1 K/uL (4.8-10.8)
--- NOTE | 2019-04-29 07:10 | NUR ---
RECEIVED PT FROM NIGHT NURSE. PT AWAKE IN BED AAOX4. DENIES PAIN NO DISTRESS NOTED. RESPIRATIONS EVEN AND UNLABORED ON ROOM AIR, CLEAR BREATH SOUNDS. SKIN INTACT. [address], PT STATES FEELING BETTER. IV IN PLACE PATENT AND ASYMPTOMATIC INFUSING PER ORDER IN R H 22G. 1:[address] SAFETY MEASURES IN PLACE. BED IN LOW POSITION. WILL CONTINUE TO MONITOR.
[2019-04-29 07:14] LABS: CREATININE 0.6 mg/dL (0.6-1.3)
[2019-04-29 08:00] VITALS: BP 116/75
[2019-04-29] MEDS: LACTOBACILLUS RHAMNOSUS GG 1 EACH CAP PO SCH (09:29)
[2019-04-29] MEDS: SERTRALINE 50 MG TAB PO SCH (09:30)
--- NOTE | 2019-04-29 09:37 | NUR ---
MEDICATIONS ADMINISTERED PER ORDER. PT TOLERATED WELL. NO DISTRESS NOTED, DENIES PAIN. SAFETY MEASURES IN PLACE. 1:[address] WILL CONTINUE TO MONITOR.
--- NOTE | 2019-04-29 09:41 | NUR ---
Called the following facilities with no bed availability: [facility], s/w Na Napoles, s/w Zina Bai, s[facility]w [facility] s/w Yoanna
--- NOTE | 2019-04-29 10:17 | NUR ---
Packet faxed to [facility] for review.
--- NOTE | 2019-04-29 11:24 | NUR ---
Packet faxed to Dory at [facility] for review.
[2019-04-29 11:26] LABS: CHOL/HDL RATIO 3.4 (1-4.5)
--- NOTE | 2019-04-29 12:14 | NUR ---
PT IN BED ASLEEP. NO DISTRESS NOTED. BED IN LOW POSITION. SAFETY MEASURES IN PLACE. 1:[address] WILL CONTINUE TO MONITOR.
--- NOTE | 2019-04-29 12:44 | NUR ---
Called the following facilities: [facility] Puri s/w [facility]. No beds at this time. Matilda Mathis s/w Brian. No beds. Laura s/w Maria Luz. No beds, pending discharges. [facility] s/w Sharath. No beds at this time, pending discharges.
--- NOTE | 2019-04-29 15:01 | NUR ---
PT IN BED AWAKE. DENIES PAIN. NO DISTRESS NOTED. SAFETY MEASURES IN PLACE. 1:[address] WILL CONTINUE TO MONITOR.
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
[2019-04-29 16:00] VITALS: BP 118/78
--- NOTE | 2019-04-29 16:16 | NUR ---
Received call from Leilani. Pt has been accepted to [facility] Unit 1, Bed 1114-B, under Dr. Cramer. For report please call .
[2019-04-29] MEDS ORDERED: QUET25TA46 PO (16:45)
[2019-04-29] MEDS ORDERED: TRAZ-466 PO (16:45)
[2019-04-29 17:30] VITALS: BP 118/78
--- NOTE | 2019-04-29 18:15 | NUR ---
PT READY FOR DISCHARGE AT THIS TIME. DISCHARGE, MEDICATION AND FOLLOWUP TEACHING GIVEN, PT VERBALIZES UNDERSTANDING. DISCHARGE PAPERWORK SIGNED. IV SITE REMOVED WITH MINIMAL BLOOD LOSS AND LUMEN INTACT. RESPIRATIONS EVEN AND UNLABORED ON ROOM AIR, CLEAR BREATH SOUNDS. DENIES PAIN. SKIN INTACT. BELONGINGS VERIFIED AND RETURNED TO PT. PT TRANSPORTED TO [facility] UNIT 1 BED 1114-B. PT TRANSPORTED VIA [facility] AT THIS TIME UNACCOMPANIED.
== END 2019-04-29 18:15 | DRG 812 ==
LOC: MED 18:24 → MTU 22:13
PROVIDERS: ADMIT General Practice; ATTEND General Practice
DX: T43.621A Poisoning by amphetamines, accidental (unintentional), initial encounter (principal); G92 Toxic encephalopathy; E72.20 Disorder of urea cycle metabolism, unspecified; R45.851 Suicidal ideations; E83.42 Hypomagnesemia; F19.10 Other psychoactive substance abuse, uncomplicated; N39.0 Urinary tract infection, site not specified; F32.9 Major depressive disorder, single episode, unspecified; I10 Essential (primary) hypertension; F15.129 Other stimulant abuse with intoxication, unspecified; F17.210 Nicotine dependence, cigarettes, uncomplicated; F41.9 Anxiety disorder, unspecified; F15.10 Other stimulant abuse, uncomplicated; Y92.89 Other specified places as the place of occurrence of the external cause; Z79.899 Other long term (current) drug therapy
CPT/HCPCS: 36415; 71045; 76770; 80048; 80053; 80305; 81001; 82140; 82550; 82553; 83036; 83605; 83735; 83880; 84100; 84443; 84484; 84702; 85025; 85610; 85730; 87081; 87086; 93005; 99285; G0480; G0482; J0696; J1885; J7030; J7060; Q0092

== ENCOUNTER 2019-05-23 15:54 | Emergency (ER) | payer MEDICAID ==
[~2019-05-23] VITALS: Ht 167.6 cm; Wt 79.4 kg
[~2019-05-23 15:54] MED LIST changes: +QUET25TA46 PO; +TRAZ-466 PO
[2019-05-23 16:01] VITALS: BP 107/63
--- NOTE | 2019-05-23 16:07 | NUR ---
PT PLACED IN LOBBY, CHARGE NURSE NOTIFIED OF HR, PT ASYMPTOMATIC, AMBULATED TO LOBBY
--- NOTE | 2019-05-23 17:02 | NUR ---
PT PLACED IN BED 11.
--- NOTE | 2019-05-23 17:13 | NUR ---
33 YEAR OLD FEMALE COMPLAINS OF ALMOST PASSING OUT TODAY. PATIENT STATES THAT SHE DID NOT FAL DOWN, AND THAT SHE HAS HAD DIZZINESS FOR THE PAST 6 DAYS. PATIENT STATES NAUSEA BUT NO VOMITTING. PATIENT ALSO STATES CONSTIPATION X 6 DAYS. BOWEL SOUNDS ACTIVEX4, NON PAIN ON PALPATION. PATIENT ALERT AND ORIENTED, BREATHING EVEN AND UNLABORED, SKIN WARM AND DRY. BED IN LOWEST POSITION, LOCKED, BED RAIL UPX1. BLOOD SUGAR 77
[2019-05-23] MEDS ORDERED: MECLIZINE 25 MG TAB PO ONE (17:30)
[2019-05-23] MEDS ORDERED: ONDANSETRON 4 MG/2 ML VIAL IVP ONE (17:45)
[2019-05-23] MEDS ORDERED: NACL 0.9% 1,000 ML IV SCH (17:45)
[2019-05-23] MEDS ORDERED: PROMETHAZINE 25 MG/ML VIAL IM ONE (17:45)
--- NOTE | 2019-05-23 18:35 | NUR ---
PT TAKEN TO CT
[2019-05-23 18:42] LABS: APPEARANCE,URINE SL CLOUDY (CLEAR); BILIRUBIN,URINE 2+ (NEGATIVE); BLOOD, URINE 3+ (NEGATIVE); COLOR,URINE YELLOW (YELLOW); LEUKOCYTE ESTERASE ,URINE TRACE (NEGATIVE); NITRITE, URINE NEGATIVE (NEGATIVE); UGLUCOSE NEGATIVE (NEGATIVE)
[2019-05-23 18:43] LABS: BASOPHILS % (AUTO) 0.5 % (0.0-2.0); EOSINOPHILS # (AUTO) 0.1 K/uL (0-0.4); EOSINOPHILS % (AUTO) 1.3 % (0.0-4.0); HEMATOCRIT 38.3 % (36-48); HEMOGLOBIN 12.5 g/dL (12.0-16.0); LYMPHOCYTES # (AUTO) 2.2 K/uL (2.5-16.5); LYMPHOCYTES % (AUTO) 31.4 % (20.5-51.1); MEAN CORPUSCULAR HEMOGLOBIN 30 pg (27-31); MEAN CORPUSCULAR HGB CONC 33 g/dL (33-37); MEAN CORPUSCULAR VOLUME 91.6 fL (80-94); MONOCYTES # (AUTO) 0.6 K/uL (0.8-1.0); MONOCYTES % (AUTO) 9.1 % (1.7-9.3); NEUTROPHILS % (AUTO) 57.7 % (42.2-75.2); PLATELET COUNT (AUTO) 317 K/uL (140-450); RED BLOOD CELL COUNT(AUTO) 4.18 MIL/uL (4.20-5.40); RED CELL DISTRIBUTION WIDTH 13.9 % (11.6-13.7); WHITE BLOOD COUNT (AUTO) 6.9 K/uL (4.8-10.8)
[2019-05-23 18:46] LABS: RBC,URINE 11-20 (MOD) /HPF (0-5)
[2019-05-23 18:47] LABS: HYALINE CASTS, URINE 0-10 /LPF (None Seen)
--- NOTE | 2019-05-23 18:53 | NUR ---
PT LAYING IN BED, RR EVEN AND UNLABORED. DENIES ANY PAIN, NAUSEA OR DIZZINESS AT THIS TIME. VSS. ALL NEEDS MET.
[2019-05-23 18:54] LABS: BARBITURATE, URINE NEG. ng/ml (NEG <=200); BENZODIAZEPINE, URINE NEG. ng/mL (NEG <=200); CANNABINOID, URINE POS. ng/mL (NEG <=50); COCAINE, URINE NEG. ng/mL (NEG <=300); OPIATE, URINE NEG. ng/mL (NEG <=2000); PHENCYCLIDINE SCREEN,URINE NEG. ng/mL (NEG <=25)
[2019-05-23 19:13] LABS: PROTHROMBIN TIME 10.4 secs (10.8-13.4)
[2019-05-23 19:27] LABS: ANION GAP 17.8 (8-16); CARBON DIOXIDE 22.8 mmol/L (21-32); CHLORIDE 102 mmol/L (98-107); GFR ARICAN-AMERICAN 81 mL/min (>90); GLUCOSE 117 mg/dL (74-106); POTASSIUM 3.6 mmol/L (3.5-5.1); SODIUM SERUM 139 mmol/L (136-145); UREA NITROGEN, BLOOD 14 mg/dL (7-18)
[2019-05-23 19:37] LABS: ALBUMIN 3.8 g/dL (3.4-5.0); AMYLASE 69 U/L (25-115); ASPARTATE AMINOTRANSFERASE 19 U/L (15-37); LIPASE 135 U/L (73-393); TOTAL BILIRUBIN 0.5 mg/dL (0.0-1.0)
[2019-05-23 19:45] LABS: ACETONE, SERUM NEGATIVE (NEGATIVE)
[2019-05-23 21:48] VITALS: BP 109/66
== END 2019-05-23 21:48 | disposition home or self-care (01) ==
LOC: MED 15:54
DX: R42 Dizziness and giddiness (principal); R11.0 Nausea; F32.9 Major depressive disorder, single episode, unspecified; F12.90 Cannabis use, unspecified, uncomplicated; Z79.899 Other long term (current) drug therapy
CPT/HCPCS: 36415; 70450; 71045; 80053; 80305; 81001; 81025; 82009; 82140; 82150; 83690; 84484; 85025; 85610; 85730; 87086; 87186; 93005; 96361; 96372; 96374; 99284; G0482; J2405; J2550; J8597; Q0092; J7030

== ENCOUNTER 2019-11-05 18:26 | Emergency (ER) | payer MEDICAID ==
[~2019-11-05] VITALS: Ht 167.6 cm; Wt 103.9 kg
[2019-11-05 18:34] VITALS: BP 132/57
--- NOTE | 2019-11-05 18:40 | NUR ---
Patient ambulated to bed 7. RN evaluating patient at bedside.
--- NOTE | 2019-11-05 18:50 | NUR ---
PT C/O THROAT PAIN. PT STATED THAT SHE FELT A BUMP UNDER HER CHIN 3DAYS AGO. PT WAS TAKING ANTIBIOTICS BUT RAN OUT. SWELLING DEVELOPED. UPON PALPATION: BUMP IS MOVEABLE, ROUND, AND TENDER TO TOUCH. NO SIGNS OF REDNESS. PT FEELS PAIN WHEN TOUCHED. NO PMHX NKA,NKDA
[2019-11-05] MEDS ORDERED: KETOROLAC 30 MG/ML VIAL IM ONE (18:55)
[2019-11-05 19:04] VITALS: BP 132/57
--- NOTE | 2019-11-05 19:05 | NUR ---
Patient discharged with v/s stable. Written and verbal after care instructions given and explained. Patient alert, oriented and verbalized understanding of instructions. Ambulatory with steady gait. All questions addressed prior to discharge. ID band removed. Patient advised to follow up with PMD. Rx of AMOXICILLIN 875MG, NORCO 5MG-325MG given. Patient educated on indication of medication including possible reaction and side effects. Opportunity to ask questions provided and answered.
== END 2019-11-05 19:05 | disposition home or self-care (01) ==
LOC: MED 18:26
DX: K08.89 Other specified disorders of teeth and supporting structures (principal); Z79.899 Other long term (current) drug therapy
CPT/HCPCS: 96372; 99283; J1885

== ENCOUNTER 2020-05-22 11:34 | Emergency (ER) | payer MEDICAID ==
[~2020-05-22] VITALS: Ht 167.6 cm; Wt 99.8 kg
[2020-05-22 11:43] VITALS: BP 145/94
--- NOTE | 2020-05-22 11:46 | NUR ---
PATIENT TRAIGED. WAITING TO BE SEEN BY MD IN TENT.
--- NOTE | 2020-05-22 12:30 | NUR ---
NOVEL SWAB DONE. WALKED TO LAB
--- NOTE | 2020-05-22 13:13 | NUR ---
Patient discharged with v/s stable. Written and verbal after care instructions given and explained. Patient alert, oriented and verbalized understanding of instructions. Ambulatory with steady gait. All questions addressed prior to discharge. ID band removed. Patient advised to follow up with PMD. Rx of TYLENOL, ZOFRAN given. Patient educated on indication of medication including possible reaction and side effects. Opportunity to ask questions provided and answered.
[2020-05-22 13:36] VITALS: BP 145/94
== END 2020-05-22 13:13 | disposition home or self-care (01) ==
LOC: MED 11:34
DX: U07.1 COVID-19 (principal); J12.89 Other viral pneumonia; Z79.899 Other long term (current) drug therapy
CPT/HCPCS: 99283; U0003

== ENCOUNTER 2020-12-24 16:35 | Emergency (ER) | payer MEDICAID ==
[~2020-12-24] VITALS: Ht 167.6 cm; Wt 107.2 kg
[2020-12-24 16:47] VITALS: BP 110/84
[2020-12-24] MEDS ORDERED: ONDANSETRON 4 MG ODT PO ONE (18:05)
[2020-12-24] MEDS ORDERED: HYDROcodone/APAP 7.5/325 MG 1 TAB PO ONE (18:05)
[2020-12-24] MEDS ORDERED: AMOX500C25 PO (18:17)
[2020-12-24] MEDS ORDERED: IBUP-2213 PO (18:17)
[2020-12-24] MEDS ORDERED: ACET-8386 PO (18:17)
[2020-12-24] MEDS ORDERED: KETOROLAC 15 MG/ML VIAL IM ONE (18:40)
[2020-12-24 19:04] VITALS: BP 110/84
== END 2020-12-24 19:04 | disposition home or self-care (01) ==
LOC: MED 16:35
DX: K04.7 Periapical abscess without sinus (principal); R22.0 Localized swelling, mass and lump, head; Z79.899 Other long term (current) drug therapy
CPT/HCPCS: 96372; 99283; J1885; Q0162

== ENCOUNTER 2023-01-03 14:59 | Emergency (ER) | payer MEDICAID ==
[~2023-01-03] VITALS: Ht 167.6 cm; Wt 103.6 kg
[~2023-01-03 14:59] MED LIST changes: +ACET-8905 PO; +AMOX500C25 PO; +IBUP-2213 PO
[2023-01-03 15:04] VITALS: BP 141/71; PULSE 90; RESP 20; TEMP 97.7; O2SAT 97
[2023-01-03 15:10] VITALS: O2SAT 97
[2023-01-03] MEDS ORDERED: KETOROLAC 30 MG/ML VIAL IM ONE (15:35)
[2023-01-03] MEDS ORDERED: TROL85CR3 TP (16:13)
[2023-01-03] MEDS ORDERED: NAPR-54 PO (16:13)
--- NOTE | 2023-01-03 16:19 | NUR ---
Patient discharged with v/s stable. Written and verbal after care instructions given and explained. Patient alert, oriented and verbalized understanding of instructions. Ambulatory with steady gait. All questions addressed prior to discharge. ID band removed. Patient advised to follow up with PMD. Rx of NIVIA GARIBAY, given. Patient educated on indication of medication including possible reaction and side effects. Opportunity to ask questions provided and answered.
== END 2023-01-03 16:19 | disposition home or self-care (01) ==
LOC: MED 14:59
DX: M79.604 Pain in right leg (principal); M79.605 Pain in left leg; G89.29 Other chronic pain; R03.0 Elevated blood-pressure reading, without diagnosis of hypertension; F41.9 Anxiety disorder, unspecified; F32.9 Major depressive disorder, single episode, unspecified; Z79.899 Other long term (current) drug therapy
CPT/HCPCS: 96372; 99283; J1885

== ENCOUNTER 2023-03-28 08:58 | Emergency (ER) | payer MEDICAID ==
[~2023-03-28] VITALS: Ht 167.6 cm; Wt 99.8 kg
[~2023-03-28 08:58] MED LIST changes: +NAPR-54 PO; +TROL85CR3 TP
[2023-03-28 09:09] VITALS: BP 130/90; PULSE 92; RESP 14; TEMP 97.9; O2SAT 98
[2023-03-28] MEDS ORDERED: NACL 0.9% 1,000 ML IV ONE (09:20)
[2023-03-28] MEDS ORDERED: ONDANSETRON 4 MG/2 ML VIAL IVP ONE (09:20)
[2023-03-28 09:49] LABS: BASOPHILS % (AUTO) 0.5 % (0.0-2.0); EOSINOPHILS # (AUTO) 0.6 K/uL (0-0.4); EOSINOPHILS % (AUTO) 7.8 % (0.0-4.0); HEMATOCRIT 36.3 % (36-48); HEMOGLOBIN 12.2 g/dL (12.0-16.0); LYMPHOCYTES # (AUTO) 2.9 K/uL (2.5-16.5); MEAN CORPUSCULAR HEMOGLOBIN 29 pg (27-31); MEAN CORPUSCULAR HGB CONC 34 g/dL (33-37); MEAN CORPUSCULAR VOLUME 86.9 fL (80-94); MONOCYTES # (AUTO) 0.9 K/uL (0.8-1.0); MONOCYTES % (AUTO) 10.9 % (1.7-9.3); NEUTROPHILS # (AUTO) 3.5 K/uL (1.8-7.7); NEUTROPHILS % (AUTO) 43.8 % (42.2-75.2); PLATELET COUNT (AUTO) 308 K/uL (140-450); RED BLOOD CELL COUNT(AUTO) 4.18 MIL/uL (4.20-5.40); RED CELL DISTRIBUTION WIDTH 14.2 % (11.6-13.7); WHITE BLOOD COUNT (AUTO) 7.9 K/uL (4.8-10.8)
[2023-03-28 10:05] LABS: ALBUMIN 3.3 g/dL (3.4-5.0); ANION GAP 11.9 (8-16); CALCIUM 8.5 mg/dL (8.5-10.1); CARBON DIOXIDE 25.6 mmol/L (21-32); CREATININE 0.9 mg/dL (0.6-1.3); POTASSIUM 3.5 mmol/L (3.5-5.1); TOTAL BILIRUBIN 0.4 mg/dL (0.0-1.0); TOTAL PROTEIN, SERUM 7.1 g/dL (6.4-8.2)
[2023-03-28 11:00] VITALS: O2SAT 98
[2023-03-28] MEDS ORDERED: CEPH500C16 PO (11:34)
[2023-03-28] MEDS ORDERED: ONDA-188 SL (11:34)
[2023-03-28 11:45] LABS: APPEARANCE,URINE CLEAR (CLEAR); BILIRUBIN,URINE NEGATIVE (NEGATIVE); BLOOD, URINE NEGATIVE (NEGATIVE); COLOR,URINE YELLOW (YELLOW); LEUKOCYTE ESTERASE ,URINE NEGATIVE (NEGATIVE); NITRITE, URINE NEGATIVE (NEGATIVE); PROTEIN,URINE 2+ (NEGATIVE); UGLUCOSE NEGATIVE (NEGATIVE)
[2023-03-28 12:16] LABS: BACTERIA,URINE 0-2 /HPF (None Seen); RBC,URINE 0-5 /HPF (0-5); SQUAMOUS EPITHELIAL CELL,UR 20-50 /LPF (0-3 (FEW)); WBC,URINE 0-5 /HPF (0-5)
== END 2023-03-28 12:05 | disposition home or self-care (01) ==
LOC: MED 08:58
DX: N39.0 Urinary tract infection, site not specified (principal); R42 Dizziness and giddiness; Z79.899 Other long term (current) drug therapy
CPT/HCPCS: 36415; 80053; 81001; 81025; 83690; 84702; 85025; 96361; 96374; 99283; J7030

== ENCOUNTER 2023-12-29 15:37 | Emergency (ER) | payer MEDICAID ==
[~2023-12-29] VITALS: Ht 167.6 cm; Wt 89.4 kg
[~2023-12-29 15:37] MED LIST changes: +CEPH500C16 PO; +NAPR-337 PO; -NAPR-54 PO; +ONDA-188 SL
[2023-12-29 16:00] VITALS: BP 131/96; PULSE 71; RESP 20; TEMP 98.6; O2SAT 98
[2023-12-29] MEDS ORDERED: QUET25TA PO (16:37)
[2023-12-29] MEDS ORDERED: DICL20GE TP (16:37)
[2023-12-29] MEDS: KETOROLAC 30 MG/ML VIAL IM ONE (16:59)
[2023-12-29] MEDS ORDERED: IBUP-2213 PO (17:04)
[2023-12-29 17:16] VITALS: BP 140/86; PULSE 70; RESP 16; TEMP 98; O2SAT 98
== END 2023-12-29 17:16 | disposition home or self-care (01) ==
LOC: MED 15:37
DX: M79.661 Pain in right lower leg (principal); M79.662 Pain in left lower leg; F31.9 Bipolar disorder, unspecified; F41.9 Anxiety disorder, unspecified; F12.90 Cannabis use, unspecified, uncomplicated; G47.00 Insomnia, unspecified; Z98.890 Other specified postprocedural states; Z79.899 Other long term (current) drug therapy
CPT/HCPCS: 81025; 96372; 99283; J1885

== ENCOUNTER 2024-02-05 15:12 | Emergency (ER) | payer MEDICAID ==
[~2024-02-05] VITALS: Ht 167.6 cm; Wt 88.0 kg
[~2024-02-05 15:12] MED LIST changes: +DICL20GE TP; +QUET25TA PO
[2024-02-05 15:25] VITALS: BP 124/88; PULSE 89; RESP 19; TEMP 98.2; O2SAT 96
[2024-02-05] MEDS ORDERED: KETOROLAC 30 MG/ML VIAL ONE (18:18)
[2024-02-05] MEDS ORDERED: PROCHLORPERAZINE 10 MG/2 ML VIAL ONE (18:19)
[2024-02-05] MEDS: PROCHLORPERAZINE 10 MG/2 ML VIAL IM ONE (18:27)
[2024-02-05] MEDS: KETOROLAC 30 MG/ML VIAL IM ONE (18:28)
[2024-02-05] MEDS ORDERED: ACET-8203 PO (19:37)
[2024-02-05] MEDS ORDERED: QUET25TA PO (19:37)
[2024-02-05] MEDS ORDERED: ONDA-188 PO (19:37)
== END 2024-02-05 20:12 | disposition home or self-care (01) ==
LOC: MED 15:12
DX: G43.909 Migraine, unspecified, not intractable, without status migrainosus (principal); F31.9 Bipolar disorder, unspecified; F17.200 Nicotine dependence, unspecified, uncomplicated; Z98.890 Other specified postprocedural states; Z79.899 Other long term (current) drug therapy
CPT/HCPCS: 81025; 96372; 99284; J0780; J1885; Q0163; 36430; 96374; 96375; 99285